=== PATIENT | female | born 1960 | race Caucasian/White ===

== ENCOUNTER 2017-06-06 10:37 | Emergency (ER) | payer BC, OTHER ==
[~2017-06-06] VITALS: Ht 177.8 cm; Wt 104.3 kg
--- NOTE | ~2017-06-06 | EKG ---
[place] [address] [facility] [place] [address] ELECTROCARDIOGRAM REPORT Name: KAREN TOWNSEND Room #: DEP [facility]#: [id number] Admission: 06/06/17 Attend Phys: Discharge: 06/06/17 Date of : 58 Report #: [id number] THIS REPORT FOR: //name// [facility] ED Test Date: 2017-06-06 Test Time: 11:11:41 Pat Name: KAREN TOWNSEND Department: Room: Gender: F Screen Printer: Katie SIERRA : 1960 Requested By: Ceasar Mcdonald Order Number: [id number] MD: Orestes Naylor Measurements Intervals [place] Rate: 78 P: 40 CA: 138 QRS: -13 QRSD: 99 T: 13 QT: 348 QTc: 397 Interpretive Statements Sinus rhythm Low voltage, precordial leads Baseline wander in lead(s) V3 No previous ECG available for comparison Electronically Signed On 06-06-2017 16:37:27 CDT by Orestes Naylor [email or web address] <ELECTRONICALLY SIGNED> By: Orestes Naylor MD 06/06/17 [id number] [id number] Orestes Naylor MD /KEVIN
[2017-06-06 10:59] LABS: URINE BILIRUBIN NEGATIVE (Negative); URINE BLOOD NEGATIVE (Negative); URINE COLOR YELLOW; URINE GLUCOSE-RANDOM* NEGATIVE (Negative); URINE KETONES NEGATIVE (Negative); URINE LEUKOCYTES-REFLEX 1+ (Negative); URINE PROTEIN (DIPSTICK) NEGATIVE (Negative); URINE SPECIFIC GRAVITY 1.025 (1.003-1.035); URINE UROBILINOGEN 0.2 E.U./dl (0.2-1.0)
[2017-06-06 11:05] LABS: CASTS None Seen /LPF (None Seen); CRYSTALS None Seen /LPF (None Seen); SQUAMOUS 4-10 Moderate /LPF (0-3); URINE RBC None Seen /HPF (0-2); URINE WBC-REFLEX 6-15 Few /HPF (0-5)
[2017-06-06 11:13] LABS: BASOPHILS 0.8 % (0.0-2.0); EOSINOPHILS 2.8 % (0.0-3.0); HEMATOCRIT 34.7 % (37.0-47.0); LYMPHOCYTES 29.1 % (24.0-44.0); MCH 30.9 pg (26.0-34.0); MCHC 34.5 g/dL (28.0-37.0); MCV 89.5 fL (80.0-100.0); MONOCYTES 9.3 % (1.0-8.0); PLATELET COUNT 269 thou/uL (150-400); RBC 3.87 mil/uL (4.20-5.00); WBC 6.9 thou/uL (4.0-11.0)
[2017-06-06 11:18] LABS: MANUAL DIFF NO
[2017-06-06 11:21] LABS: CALCIUM 9.1 mg/dL (8.5-10.1); CREATININE 0.9 mg/dL (0.6-1.0); POTASSIUM 3.7 mmol/L (3.5-5.1)
[2017-06-06] MEDS ORDERED: PREVACID30 MG PO (11:30)
[2017-06-06] MEDS ORDERED: SYNTHROID137 MCG PO (11:30)
[2017-06-06 11:31] LABS: ALBUMIN 4.2 g/dL (3.4-5.0); TOTAL BILIRUBIN 0.3 mg/dL (<0.1-1.0)
[2017-06-06] MEDS ORDERED: ZANTAC 150MG T150 MG PO (11:32)
[2017-06-06] MEDS ORDERED: AMPHETAMINE SAL30 MG PO (11:33)
[2017-06-06] MEDS ORDERED: WELLBUTRIN 100100 MG PO (11:34)
[2017-06-06] MEDS ORDERED: CLARITIN10 MG PO (11:34)
[2017-06-06] MEDS ORDERED: SERTRALINE HCL50 MG PO (11:34)
[2017-06-06] MEDS ORDERED: ESTROVEN ENERG1 EACH PO (11:35)
[2017-06-06] MEDS ORDERED: PROBIOTIC1 EAC1 PO (11:35)
[2017-06-06] MEDS ORDERED: CENTRUM SILVER1 EAC4 PO (11:36)
[2017-06-06] MEDS ORDERED: FISH OIL 1,001000 M2 PO (11:36)
[2017-06-06 13:04] VITALS: BP 119/67
== END 2017-06-06 14:24 | disposition home or self-care (01) ==
LOC: ER 10:37
PROVIDERS: Physician Assistant
DX: R10.9 Unspecified abdominal pain (principal); R07.9 Chest pain, unspecified; K21.9 Gastro-esophageal reflux disease without esophagitis; E03.9 Hypothyroidism, unspecified; F41.9 Anxiety disorder, unspecified; F32.9 Major depressive disorder, single episode, unspecified; F90.9 Attention-deficit hyperactivity disorder, unspecified type; Z87.891 Personal history of nicotine dependence

== ENCOUNTER → 2018-07-27 | Outpatient (CLI) | payer OTHER ==
[~2018-07-27] MED LIST: AMPHETAMINE SAL30 MG PO; CENTRUM SILVER1 EAC4 PO; CLARITIN10 MG PO; ESTROVEN ENERG1 EACH PO; FISH OIL 1,001000 M2 PO; PREVACID30 MG PO; PROBIOTIC1 EAC1 PO; SERTRALINE HCL50 MG PO; SYNTHROID137 MCG PO; WELLBUTRIN 100100 MG PO; ZANTAC 150MG T150 MG PO
== END ==
LOC: CAT 12:27
DX: Z13.6 Encounter for screening for cardiovascular disorders (principal); E78.00 Pure hypercholesterolemia, unspecified